=== PATIENT | female | born 1980 | race Hispanic/Latino ===

== ENCOUNTER → 2018-02-01 | Day surgery (SDC) | payer MEDICARE ==
[2018-01-25 08:48] VITALS: BMI 26.4
[~2018-02-01] MED LIST: Ferric Subsulfate Sol(60 mL) ONE; Lactated Ringer's 1,000 ML IV ONE; Lactated Ringer's 1,000 ML IV PRN; Midazolam 2 MG/2 ML VIAL ONE; Oxycodone/Acetaminophen 5/325 mg Tab PO ONE; Oxycodone/Acetaminophen 5/325 mg Tab PO PRN; Propofol 10 mg/ml Inj (20 ML) ONE; Silver Nitrate Topical - Stick ONE; Strong Iodine Topical Sol. 5%-10% ONE; cefOXitin IV 1 gm in Dextrose 1 GM/50 ML BAG IVPB ONE
--- NOTE | 2018-02-01 07:40 | CP.SDSHP ---
Same Day Surgery H & P - History Proposed Procedure: hysteroscopy posible D/C polypectomy Pre-Op Diagnosis: endometrial polyp menorrhagia/irregular periods - Previous Medical/Surgical History Previous Surgical History: TOPx2; BTL; gastric sleeve; breast reduction; occuloplasty - Allergies Allergies: Allergies No Known Allergies Allergy (Verified 01/25/18 08:48) - Physical Exam Vital Signs: Vital Signs 02/01/18 02/01/18 07:02 07:05 Temperature 98.2 F Pulse Rate 76 76 Respiratory 20 Rate Blood Pressure 107/68 O2 Sat by Pulse 98 Oximetry Mental Status: Alert & Oriented x3 Neuro: WNL Heart: WNL Lungs: WNL GI: WNL - {Optional Preform as Required} Breast: WNL Abdomen: WNL Integument: WNL TABLE GAMES SHIFT MANAGER: WNL - Impression Impression: endometrial polyp by saline sono menorragia and irregular periods - Date & Time Date: 02/01/18 Time: 07:42 Short Stay Discharge - Short Stay Discharge Admitting Diagnosis/Reason for Visit: N84.0 Disposition: HOME/ ROUTINE Referrals: Savanah Matthews MD [Primary Care Provider] -
[2018-02-01 08:14] LABS: HEMOGLOBIN 12.5 g/dL (12.0-16.0); MEAN CELL VOLUME 97.5 fl (81.0-99.0); MEAN CORPUSCULAR HEMOGLOBIN 32.9 pg (27.0-31.0); MEAN CORPUSCULAR HGB CONC 33.8 g/dL (33.0-37.0); RBC 3.8 Mil/uL (3.80-5.20); RED CELL DISTRIBUTION WIDTH 12.1 % (11.5-14.5); WHITE BLOOD COUNT 3.9 K/uL (4.8-10.8)
[2018-02-01 09:22] VITALS: O2SAT 100
[2018-02-01 11:10] VITALS: BP 110/62; PULSE 69; RESP 48; TEMP 97.9
--- NOTE | 2018-02-02 14:39 | OP ---
PROCEDURE DATE: 02/01/2018 PREOPERATIVE DIAGNOSES: 1. Endometrial polyps by sonogram. 2. Menorrhagia. 3. Irregular period. POSTOPERATIVE DIAGNOSES: 1. Endometrial polyps by sonogram. 2. Menorrhagia. 3. Irregular period pending pathology report. PROCEDURE PERFORMED: 1. Hysteroscopy with endometrial polypectomy, MyoSure procedure. 2. Fractional dilatation and curettage. SURGEON: Tim Araujo MD ANESTHESIA USED: General. ANESTHESIA ADMINISTERED BY: Saman Infante MD ESTIMATED BLOOD LOSS: 75 mL. DRAINS USED: None. REPLACEMENT USED: None. FINDINGS: 1. Uterus appears anteverted, mobile 7 to 3 inches to move to palpation. 2. Cervix closed, long, posterior, mobile. No gross lesion to visualization. 3. No adnexal masses to palpation bilaterally. 4. Endometrial cavity appear with a small polyp and polypectomy performed using MyoSure procedure without any complications. 5. Fractional dilatation and curettage performed. DESCRIPTION OF PROCEDURE: The patient was taken to the operating room and placed in the operating table in a supine position. Following induction of general anesthesia, the patient was then replaced in a dorsal lithotomy position. Perineal and genital areas were draped and prepped in the usual sterile manner. Sterile catheter was then placed into the bladder, clear fluid was evacuated from the bladder. The patient was then examined under anesthesia with some of the above findings. Heavy weighted speculum was then placed in the posterior wall of the vagina exposing the cervix. The anterior lip of the cervix was then grasped using a single tooth tenaculum and retracted superiorly. At this time, the cervix and endocervical canal were then curetted using a Edgar curette, minimal amount of tissue obtained, and the cervix was then dilated using Dennis dilators in an increasing size manner. Following this, we then proceeded to place a hysteroscope at the anteriorly lip of the cervix and into the endocervical canal and advanced under direct visualization. Upon entering, the endometrial cavity, there was one polyp noted to be present on the anterior aspect and some tissue also appears to be consistent with possible synechia noted. At this time, polypectomy was then performed using MyoSure procedure and some of this tissue also removed under direct visualization using the MyoSure apparatus. Following this, the endometrial cavity appeared to be clean. No other lesion noted. The hysteroscope was then removed under direct visualization and the endometrial cavity was then gently curetted. Minimal amount tissue obtained. The patient tolerated the procedure well. There were no complications. Single tooth tenaculum removed. No bleeding noted. The patient was then transferred to the recovery room in satisfactory condition. Tim Araujo MD MTDD
== END | disposition home or self-care (01) ==
LOC: H.OPSURG 06:29
PROVIDERS: ATTEND Specialist
DX: N84.0 Polyp of corpus uteri (principal); N92.0 Excessive and frequent menstruation with regular cycle
CPT/HCPCS: 36415; 58558; 85027; 88305; J0694; J2001; J2250; J2704; J3010; J7120

== ENCOUNTER 2018-09-06 10:22 | Emergency (ER) | payer MEDICAID, MEDICARE ==
[2018-09-06 10:22] VITALS: BMI 26.4
[2018-09-06 10:27] VITALS: RESP 18; TEMP 98.3; O2SAT 99
--- NOTE | 2018-09-06 10:55 | ED PDOC ---
HPI: Female Pain Time Seen by Provider: 09/06/18 10:42 Chief Complaint (Nursing): Female Genitourinary Chief Complaint (Provider): Female Genitourinary History Per: Patient History/Exam Limitations: no limitations Onset/Duration Of Symptoms: Sudden Onset Current Symptoms Are (Timing): Still Present Additional Complaint(s): 38 year old female, currently 9 weeks , is referred to ED by her BUFFER NICKEL for an evaluation of heavy vaginal bleeding with clots since this morning. She denies any abdominal pain, nausea, vomiting, diarrhea, chest pain, or shortness of breath. PCP: Dr. Tim Araujo Past Medical History Reviewed: Historical Data, Nursing Documentation, Vital Signs Vital Signs: Last Vital Signs Temp 98.3 F 09/06/18 10:26 Pulse 100 H 09/06/18 10:26 Resp 18 09/06/18 10:26 BP 110/78 09/06/18 10:26 Pulse Ox 99 09/06/18 10:26 - Medical History PMH: Arthritis (hands) Denies: Chronic Kidney Disease - Surgical History Surgical History: Denies: No Surg Hx Other surgeries: bariatric - Family History Family History: States: Unknown Family Hx - Home Medications Home Medications: Ambulatory Orders Medication Instructions Recorded No Known Home Med 09/06/18 - Allergies Allergies/Adverse Reactions: Allergies Allergy/AdvReac Type Severity Reaction Status Date / Time No Known Allergies Allergy Verified 09/06/18 10:37 Review of Systems ROS Statement: Except As Marked, All Systems Reviewed And Found Negative Cardiovascular: Negative for: Chest Pain Respiratory: Negative for: Shortness of Breath Gastrointestinal: Negative for: Nausea, Vomiting, Abdominal Pain, Diarrhea Genitourinary Female: Positive for: Vaginal Bleeding (heavy with clots) Physical Exam - Reviewed Nursing Documentation Reviewed: Yes Vital Signs Reviewed: Yes - Physical Exam Appears: Positive for: No Acute Distress Head Exam: Positive for: ATRAUMATIC, NORMAL INSPECTION, NORMOCEPHALIC Skin: Positive for: Normal Color Eye Exam: Positive for: Normal appearance ENT: Positive for: Normal ENT Inspection Neck: Positive for: Normal Cardiovascular/Chest: Positive for: Regular Rate, Rhythm, Chest Non Tender Respiratory: Positive for: Normal Breath Sounds. Negative for: Wheezing, Respiratory Distress Gastrointestinal/Abdominal: Positive for: Soft, Tenderness (suprapubic) Back: Positive for: Normal Inspection. Negative for: L CVA Tenderness, R CVA Tenderness Extremity: Positive for: Normal ROM (upper/lower). Negative for: Pedal Edema (bilaterally) Neurologic/Psych: Positive for: Alert, Oriented - Laboratory Results Result Diagrams: 09/06/18 11:30 09/06/18 11:30 Interpretation Of Abn Labs: elevated bhcg Urine POC: Positive - ECG O2 Sat by Pulse Oximetry: 99 (RA) Pulse Ox Interpretation: Normal - CT Scan/US US Other Rad Studies (CT/US): Radiology Report Reviewed Other Rad Interpretation: twins; Twin A HR, Twin B no HR - Progress ED Course And Treament: 1400: Spoke with Dr. Araujo. Made aware of all findings and presentation. Fu with him Sunday. AAOx3. Pain free. Tolerated po. Fu with pcp. Medical Decision Making Medical Decision Making: Initial Impression: Vaginal bleeding in Initial Plan: * Labs * US OB transvaginal Scribe Attestation: Documented by Jenelle Rose, acting as a scribe for Bruce White MD. Provider Scribe Attestation: All medical record entries made by the Scribe were at my direction and personally dictated by me. I have reviewed the chart and agree that the record accurately reflects my personal performance of the history, physical exam, medical decision making, and the department course for this patient. I have also personally directed, reviewed, and agree with the discharge instructions and disposition. Disposition - Clinical Impression Clinical Impression: Threatened - Patient ED Disposition Is Patient to be Admitted: No Counseled Patient/Family Regarding: Studies Performed, Diagnosis, Need For Followup - Disposition Referrals: Tim Araujo MD [Family Provider] - (Follow up Kemal without fail. ) Disposition: Routine/Home Disposition Time: 14:05 Condition: STABLE Additional Instructions: Return if not better in 3 days. Have bed and pelvic rest. Instructions: Threatened Miscarriage Forms: [facility] (Slovenian) Print Language: TURKMEN
[2018-09-06 11:45] LABS: BASO % 0.3 % (0.0-2.0); EOS % 0.1 % (0.0-4.0); LYMPH # 1.6 K/uL (1.0-4.3); LYMPH % 18.3 % (20.0-40.0); MEAN CELL VOLUME 97.1 fl (81.0-99.0); MEAN CORPUSCULAR HEMOGLOBIN 32.6 pg (27.0-31.0); MEAN CORPUSCULAR HGB CONC 33.6 g/dL (33.0-37.0); MEAN PLATELET VOLUME 9.9 fl (7.2-11.7); MONO # 0.5 K/uL (0.0-0.8); MONO % 6.2 % (0.0-10.0); NEUT # 6.6 K/uL (1.8-7.0); NEUT % 75.1 % (50.0-75.0); RED CELL DISTRIBUTION WIDTH 11.4 % (11.5-14.5); WHITE BLOOD COUNT 8.7 K/uL (4.8-10.8)
[2018-09-06 12:03] LABS: ALB/GLOB RATIO 1.1 (1.0-2.1); ALBUMIN 3.9 g/dL (3.5-5.0); ALT/SGPT 44 U/L (9-52); AST/SGOT 32 U/L (14-36); BLOOD UREA NITROGEN 8 mg/dl (7-17); CALCIUM 9.3 mg/dL (8.4-10.2); GFR NON-AFRICAN AMERICAN > 60
--- NOTE | 2018-09-06 14:36 | US ---
Date of service: 09/06/2018 PROCEDURE: OB Pelvic Ultrasound HISTORY: preg and pain; last menstrual period 06/25/2018 corresponds to 10 week 3 day gestation. COMPARISON: None available. FINDINGS: UTERUS: Twin live intrauterine gestation, diamniotic/dichorionic. Twin B is at the right side of the endometrial cavity and Twin A is at the left side of the endometrial cavity. No definite decidual related hemorrhage appreciable throughout. No myometrial lesion appreciable. poles yolk sac and amniotic membranes are identified bilaterally. Twin A : Mean crown-rump length 2.79 cm corresponds to 9 weeks 4 days with mean sac diameter 3.99 corresponding to 9 weeks 2 days. cardiac tears recorded at 174 beats per minute with mean yolk sac size is 0.45 cm. Twin B: Mean crown-rump length measurement 1.93 corresponds to 8 weeks 3 days mean sac diameter 3.36 cm correspond 8 weeks 3 days an yolk sac of 0.48 cm. Cardiac activity is not identified within twin B. Estimated date of delivery 04/15/2019. Uterus measures 10.2 x 8.7 x 6.5 cm, anteverted. No suspicious myometrial findings. CERVIX: 4 cm in length, and closed. No cervical abnormality seen. RIGHT OVARY: Measures 3.6 x 3.5 x 1.7 cm. No mass. Normal flow. LEFT OVARY: Measures 2.9 x 2.5 x 2.1 cm. No mass. Normal flow. Probable corpus luteum cyst 1.4 cm greatest dimension. FREE FLUID: None. OTHER FINDINGS: None. IMPRESSION: Twin intrauterine gestation is identified with Twin A appearing viable and Twin B exhibiting no definite cardiac activity and therefore demise is suspected. Ultrasonic age is 9 weeks 4 days for Twin A and 8 weeks 3 days for Twin B. No hemorrhage related to the decidual reaction appreciated at this time. Clinical and sonographic follow-up are advised.
[2018-09-06 17:31] VITALS: BP 114/76; PULSE 89
== END 2018-09-06 15:06 | disposition home or self-care (01) ==
LOC: H.ER 10:22
DX: O20.0 Threatened abortion (principal); Z3A.10 10 weeks gestation of pregnancy